=== PATIENT | female | born 1960 | race Caucasian/White ===

== ENCOUNTER 2020-08-27 09:37 | Emergency (ER) | payer OTHER ==
[2020-08-27 10:05] LABS: BASOPHIL 1.2 % (0-2); EOSINOPHIL 0.3 % (0-5); HCT 39.5 % (37.0-47.0); HGB 13.2 g/dl (12.5-16.0); LYMPHOCYTE 31.7 % (15-48); MCH 32.7 pg (25.0-31.0); MCHC 33.4 g/dL (32.0-36.0); MCV 97.8 fL (78.0-100.0); MONOCYTE 12.4 % (0-12); MPV 9.3 fL (6.0-9.5); NEUTROPHIL 53.8 % (41-80); NRBC 0; PLT 308 K/uL (150-400); RBC 4.04 M/uL (4.20-5.40); RDW 13.3 % (11.5-14.0); WBC 9.4 K/uL (4.0-10.5)
[2020-08-27 10:42] LABS: ALBUMIN 3.6 g/dL (3.4-5.0); BILIRUBIN - TOTAL 0.6 mg/dL (0.2-1.0); CREATININE 0.8 mg/dL (0.51-0.95); GLOBULIN (CALCULATION) 3.7 g/dL; POTASSIUM 4.7 mmol/L (3.5-5.1); TOTAL PROTEIN 7.3 g/dL (6.4-8.2)
[2020-08-27 12:36] LABS: INR 0.93 (0.9-1.2); PROTHROMBIN TIME 11.8 SECONDS (11.4-13.6); PTT 29.8 SECONDS (22.2-34.7)
== END 2020-08-27 15:11 | disposition other institution (70) ==
LOC: FER 09:37
PROVIDERS: Emergency Medicine
DX: I21.4 Non-ST elevation (NSTEMI) myocardial infarction (principal); I26.99 Other pulmonary embolism without acute cor pulmonale; Z88.5 Allergy status to narcotic agent; Z88.8 Allergy status to other drugs, medicaments and biological substances; Z20.822 Contact with and (suspected) exposure to COVID-19
CPT/HCPCS: 36415; 71045; 71275; 80053; 84484; 85025; 85379; 85610; 85730; 93005; J1644; J1885; J2930; J7030; Q9967; U0002

== ENCOUNTER 2020-11-19 15:44 | Emergency (ER) | payer OTHER ==
[2020-11-19 16:17] LABS: BASOPHIL 1.2 % (0-2); EOSINOPHIL 0.7 % (0-5); HCT 39.4 % (37.0-47.0); HGB 12.8 g/dl (12.5-16.0); LYMPHOCYTE 29.2 % (15-48); MCH 30.8 pg (25.0-31.0); MCHC 32.5 g/dL (32.0-36.0); MCV 94.9 fL (78.0-100.0); MONOCYTE 16.3 % (0-12); MPV 9.8 fL (6.0-9.5); NEUTROPHIL 52.2 % (41-80); NRBC 0; PLT 315 K/uL (150-400); RBC 4.15 M/uL (4.20-5.40); RDW 14.2 % (11.5-14.0); WBC 8.1 K/uL (4.0-10.5)
[2020-11-19 16:24] LABS: INR 1.29 (0.9-1.2); PROTHROMBIN TIME 15.4 SECONDS (11.8-13.4); PTT 31.1 SECONDS (24.4-34.7)
[2020-11-19 16:46] LABS: ALBUMIN 3.7 g/dL (3.4-5.0); BILIRUBIN - TOTAL 0.3 mg/dL (0.2-1.0); BUN/CREAT RATIO (CALC) 14.1 RATIO; CREATININE 0.78 mg/dL (0.51-0.95); GLOBULIN (CALCULATION) 3.4 g/dL; POTASSIUM 3.9 mmol/L (3.5-5.1); TOTAL PROTEIN 7.1 g/dL (6.4-8.2)
[2020-11-19 16:52] LABS: CKMB 2.9 ng/mL (0.0-3.6)
== END 2020-11-19 21:38 | disposition home or self-care (01) ==
LOC: FER 15:44
PROVIDERS: Internal Medicine
DX: R53.1 Weakness (principal); R00.2 Palpitations; I25.2 Old myocardial infarction; I10 Essential (primary) hypertension; I48.91 Unspecified atrial fibrillation; Z86.711 Personal history of pulmonary embolism; Z85.72 Personal history of non-Hodgkin lymphomas
CPT/HCPCS: 36415; 70450; 71045; 80053; 80061; 82550; 82553; 83874; 83880; 84443; 84484; 85025; 85610; 85730; 93005; J7030